=== PATIENT | male | born 1960 | race Caucasian/White ===

== ENCOUNTER 2017-09-28 05:41 | Inpatient (IN) | payer OTHER ==
[2017-09-24 14:59] LABS: BASOPHILS # (AUTO) 0.1 X10'3 (0-0.2); BASOPHILS % (AUTO) 1.1 % (0-1); EOSINOPHILS # (AUTO) 0.5 X10'3 (0-0.9); LYMPHOCYTES # (AUTO) 2.5 X10'3 (1.1-4.8); LYMPHOCYTES % (AUTO) 27.1 % (21-51); MEAN CORPUSCULAR HEMOGLOBIN 31.6 PG (27.0-31.0); MEAN CORPUSCULAR VOLUME 92.7 FL (78-98); MEAN PLATELET VOLUME 8.4 FL (7.4-10.4); MONOCYTES % (AUTO) 10.2 % (2-12); NEUTROPHILS # (AUTO) 5.3 X10'3 (1.8-7.7); NEUTROPHILS % (AUTO) 56.6 % (42-75); PRE OP HEMATOCRIT 44.8 % (42.0-52.0); PRE OP HEMOGLOBIN 15.3 g/dL (14.0-17.9); PRE OP PLATELET COUNT 241 X10'3 (140-440); RED BLOOD COUNT 4.83 X10'6 (4.70-6.10); RED CELL DISTRIBUTION WIDTH 13.2 % (11.5-14.5)
[2017-09-24 15:01] LABS: CLARITY,URINE Clear (Clear); COLOR,URINE Yellow (Yellow); GLUCOSE, URINE 100 mg/dl (Neg); KETONES,URINE Negative (Neg); LEUKOCYTE ESTERASE ,URINE Negative (Neg); NITRITES, URINE Negative (Neg); OCCULT BLOOD,URINE Negative (Neg); PROTEIN,URINE Negative (Neg); UROBILINOGEN,URINE 0.2 E.U/dL (0.2-1.0)
[2017-09-24 15:02] LABS: UA COLLECTION TYPE CLN CATCH MIDSTREAM
[2017-09-24 15:09] LABS: PRE OP PROTIME 10.8 SECONDS (9.0-12.0)
[2017-09-24 15:16] LABS: ALBUMIN 3.7 G/DL (3.4-5.0); ALBUMIN/GLOBULIN RATIO 1.1 (1.1-1.5); ALKALINE PHOSPHATASE 53 IU/L (46-116); BLOOD UREA NITROGEN 20 MG/DL (7-18); BUN/CREATININE RATIO 18.7 (5.4-32.0); CHLORIDE 106 MMOL/L (99-107); CREATININE 1.07 MG/DL (0.60-1.10); HEMOGLOBIN A1C 5.8 % (4.5-6.2); PRE OP ALT 28 U/L (30-65); PRE OP ANION GAP 8 (8-16); PRE OP AST 19 U/L (10-37); PRE OP BILIRUB, TOTAL 0.3 MG/DL (0.0-1.0); PRE OP GLUCOSE 71 MG/DL (70-104); PRE OP POTASSIUM 4.4 MMOL/L (3.4-5.1); PRE OP SODIUM 142 MMOL/L (135-145); TOTAL CARBON DIOXIDE 27.6 MMOL/L (24-32); TOTAL PROTEIN 7.2 G/DL (6.4-8.2); eGFR 71 ML/MIN
[2017-09-25 05:50] LABS: ABG PCO2 (T) 32.5 mmHg (35.0-48.0); ABG PH (T) 7.449 (7.350-7.450); ABG PO2 (T) 83.6 mmHg (83-108); ALLEN'S TEST Positive; FMetHb 0.1 % (0.3-1.12); TOTAL HEMOGLOBIN 15.9 G/dl (14.0-18.0)
[~2017-09-28] VITALS: Ht 177.8 cm; Wt 92.4 kg
[2017-09-28] VITALS (19 sets, daily range): BP systolic 90–142; BP diastolic 53–87
[~2017-09-28 05:41] MED LIST: ALBU6.7H INH; FLUO15OI2 TP; LORazepam 2 mg/ml vial IV PRN; TIOT18CA3 INH; albuterol 2.5 MG/3 ML nebule NEB ONE; cefazolin/dext.iso 2gm/50ml 50 ML IV ONE; famotidine 20mg tablet PO ONE; metoprolol tartrate 12.5mg (1/2 tablet) PO ONE; ringers solution, lacted 1,000 ML IV SCH; vancomycin inj 1,500 MG in normal saline 300ml IV soln IV ONE
[2017-09-28] MEDS ORDERED: LIDOcaine 1% (10mg/ml) 2ml vial ONE (05:53)
[2017-09-28] MEDS ORDERED: SUFENTANIL CITRATE 50 MCG/ML 2ml ampule IV ONE (06:51)
[2017-09-28] MEDS ORDERED: MIDAZolam 5mg/ml 2ml vial ONE ×2 (06:52→12:25)
[2017-09-28] MEDS ORDERED: LIDOcaine 2% 5ml jelly ONE (06:57)
[2017-09-28] MEDS ORDERED: isoflurane 100ml inhalation liquid IH ONE (07:05)
[2017-09-28] MEDS ORDERED: DOPamine/D5W 400mg/250ml bag IV ONE (07:05)
[2017-09-28] MEDS ORDERED: nitroGLYCERIN in D5W 50mg/250ml (Tridil) infusion IV ONE (07:05)
[2017-09-28] MEDS ORDERED: NORepinephrine 1 mg/ml inj IV ONE (07:05)
[2017-09-28] MEDS ORDERED: etomidate 2mg/ml inj. ONE (07:59)
[2017-09-28] MEDS ORDERED: ePHEDrine 50MG/ML INJ. ONE (07:59)
[2017-09-28] MEDS ORDERED: LIDOcaine 2% (20mg/ml) 5ml vial ONE (07:59)
[2017-09-28] MEDS ORDERED: rocuronium 10mg/ml inj IV ONE ×3 (07:59)
[2017-09-28] MEDS ORDERED: heparin 1,000 units/ml 10ml inj ONE (08:00)
[2017-09-28] MEDS ORDERED: potassium Cl 2 mEq/ml inj IV ONE (08:00)
[2017-09-28] MEDS ORDERED: heparin 10,000 units/1 ML INJ ONE (08:00)
[2017-09-28] MEDS ORDERED: methylPREDNISolone sod. succ. 500mg inj ONE (08:00)
[2017-09-28] MEDS ORDERED: aminocaproic acid 250 MG/1 ML inj. ONE (08:00)
[2017-09-28] MEDS ORDERED: 0.9 % SODIUM CHLORIDE 10 ML VIAL ONE ×4 (08:00)
[2017-09-28] MEDS ORDERED: phenylephrine 10mg/ml inj IV ONE ×2 (08:00)
[2017-09-28] MEDS ORDERED: MAGNESIUM SULFATE 4 MEQ/ML (1gm/2ml) injection ONE (08:00)
[2017-09-28] MEDS ORDERED: albumin (human) 25% 100 ML IV solution IV ONE (08:00)
[2017-09-28] MEDS ORDERED: LIDOcaine 2% (20 mg/ml) 5ml cardiac syringe ONE (08:00)
[2017-09-28] MEDS ORDERED: calcium chloride 100 MG/1 ML inj IV ONE (08:00)
[2017-09-28] MEDS ORDERED: sodium bicarbonate (8.4%) 1 mEq/ml syringe ONE (08:00)
[2017-09-28] MEDS ORDERED: mupirocin 2% ointment 22GM NS SCH (08:00)
[2017-09-28 08:05] LABS: ABG BASE EXCESS -1.4 mmol/L (-2.0-3.0); ABG HCO3 25.8 mmol/L (22.0-26.0); ABG OXYGEN SATURATION 99.5 % (95-98); ABG PCO2 54.1 mmHg (35.0-45.0); ABG PH 7.297 (7.350-7.450); ABG PO2 536.3 mmHg (60.0-100.0); CL (ABG) 106 mmol/L (99-107); FCOHb 1.4 % (0.5-1.5); FMetHb 0.3 % (0.3-1.12); FO2Hb 97.8 % (94-100); GLUCOSE (ABG) 124 mg/dl (70-105); IONIZED CA (ABG) 1.13 mmol/L (1.03-1.32); K (ABG) 4.2 mmol/L (3.3-5.1); NA (ABG) 135 mmol/L (135-145); TOTAL HEMOGLOBIN 13.9 G/dl (14.0-18.0)
[2017-09-28] MEDS ORDERED: fentaNYL/PF 50MCG/1 ML 2ML syringe IV PRN (08:55)
[2017-09-28] MEDS ORDERED: midazolam 2 mg/2 ml injection IV PRN (08:55)
[2017-09-28 09:06] LABS: ABG BASE EXCESS -0.7 mmol/L (-2.0-3.0); ABG HCO3 24.8 mmol/L (22.0-26.0); ABG OXYGEN SATURATION 99.1 % (95-98); ABG PCO2 44.2 mmHg (35.0-45.0); ABG PH 7.367 (7.350-7.450); CL (ABG) 105 mmol/L (99-107); FCOHb 0.9 % (0.5-1.5); FMetHb 0.1 % (0.3-1.12); FO2Hb 98.1 % (94-100); GLUCOSE (ABG) 123 mg/dl (70-105); IONIZED CA (ABG) 1.05 mmol/L (1.03-1.32); K (ABG) 5.5 mmol/L (3.3-5.1); NA (ABG) 133 mmol/L (135-145); TOTAL HEMOGLOBIN 11.3 G/dl (14.0-18.0)
[2017-09-28 09:20] LABS: ABG BASE EXCESS VENOUS -1.4 mmol/L; ABG HCO3 VENOUS 24.2 mmol/L; ABG PCO2 VENOUS 44.6 mmHg; ABG PO2 VENOUS 49.8 mmHg; CL (ABG) 105 mmol/L (99-107); FCOHb VENOUS 1.4 %; FHHb VENOUS 12.8 %; FMetHb VENOUS 0.1 %; FO2Hb VENOUS 85.7 %; GLUCOSE (ABG) 130 mg/dl (70-105); IONIZED CA (ABG) 1.07 mmol/L (1.03-1.32); K (ABG) 5.7 mmol/L (3.3-5.1); NA (ABG) 133 mmol/L (135-145); TOTAL HEMOGLOBIN 11.4 G/dl (14.0-18.0)
[2017-09-28 09:50] LABS: ACT @ 1.70 U 316 SEC (193-297); ACT @ 2.84 U 418 SEC (260-420); BASELINE ACT 149 SEC (101-148); PATIENT WEIGHT 93.0k KG
[2017-09-28 09:56] LABS: ABG BASE EXCESS 2.7 mmol/L (-2.0-3.0); ABG HCO3 26.5 mmol/L (22.0-26.0); ABG OXYGEN SATURATION 98.8 % (95-98); ABG PCO2 38.1 mmHg (35.0-45.0); ABG PH 7.461 (7.350-7.450); ABG PO2 174.2 mmHg (60.0-100.0); CL (ABG) 105 mmol/L (99-107); FMetHb 0.3 % (0.3-1.12); FO2Hb 97.5 % (94-100); GLUCOSE (ABG) 163 mg/dl (70-105); IONIZED CA (ABG) 1.03 mmol/L (1.03-1.32); K (ABG) 6.5 mmol/L (3.3-5.1); NA (ABG) 134 mmol/L (135-145); TOTAL HEMOGLOBIN 11.1 G/dl (14.0-18.0)
[2017-09-28 10:10] LABS: ABG BASE EXCESS -1.1 mmol/L (-2.0-3.0); ABG HCO3 22.7 mmol/L (22.0-26.0); ABG OXYGEN SATURATION 98.9 % (95-98); ABG PCO2 34.4 mmHg (35.0-45.0); ABG PH 7.437 (7.350-7.450); ABG PO2 330.4 mmHg (60.0-100.0); CL (ABG) 102 mmol/L (99-107); FCOHb 0.5 % (0.5-1.5); FMetHb 0.2 % (0.3-1.12); FO2Hb 98.2 % (94-100); GLUCOSE (ABG) 163 mg/dl (70-105); IONIZED CA (ABG) 1.52 mmol/L (1.03-1.32); K (ABG) 6.4 mmol/L (3.3-5.1); NA (ABG) 126 mmol/L (135-145); TOTAL HEMOGLOBIN 10.4 G/dl (14.0-18.0)
[2017-09-28 10:36] LABS: ABG BASE EXCESS -0.8 mmol/L (-2.0-3.0); ABG HCO3 24.7 mmol/L (22.0-26.0); ABG OXYGEN SATURATION 99.3 % (95-98); ABG PCO2 44.1 mmHg (35.0-45.0); ABG PH 7.366 (7.350-7.450); ABG PO2 504.2 mmHg (60.0-100.0); CL (ABG) 106 mmol/L (99-107); FCOHb 0.7 % (0.5-1.5); FMetHb 0.3 % (0.3-1.12); FO2Hb 98.3 % (94-100); GLUCOSE (ABG) 144 mg/dl (70-105); IONIZED CA (ABG) 1.22 mmol/L (1.03-1.32); K (ABG) 5.6 mmol/L (3.3-5.1); NA (ABG) 132 mmol/L (135-145); TOTAL HEMOGLOBIN 11.2 G/dl (14.0-18.0)
[2017-09-28] MEDS ORDERED: ceFAZolin 1000mg inj ONE (10:43)
[2017-09-28] MEDS: insulin regular, human 100 UNITS in normal saline 100ml IV soln 99 ML IV SCH ×14 (10:50→21:05)
[2017-09-28] MEDS ORDERED: sodium chloride 0.45% 1,000 ML IV SCH (11:24)
[2017-09-28] MEDS ORDERED: DOPamine 400mg/D5W 250ml 250 ML IV PRN (11:24)
[2017-09-28] MEDS ORDERED: niCARDipine/sod cl 20mg/200ml 200 ML IV PRN (11:24)
[2017-09-28] MEDS ORDERED: nitroGLYCERIN-Tridil 50MG/D5W 250 ML IV PRN (11:24)
[2017-09-28] MEDS ORDERED: potassium Cl 20mEq/100mL bag 100 ML IV PRN ×3 (11:25)
[2017-09-28] MEDS ORDERED: HYDROcodone/acetaminophen 10/325mg tab PO PRN (11:25)
[2017-09-28] MEDS ORDERED: metoclopramide 5 mg/ml inj IV PRN (11:25)
[2017-09-28] MEDS ORDERED: acetaminophen 325mg tablet PO PRN (11:25)
[2017-09-28] MEDS ORDERED: sodium phosphate inj. 15 MMOL in dextrose 5%-water 150 ML IV PRN (11:25)
[2017-09-28] MEDS ORDERED: insulin regular, human inj. 100 UNITS in normal saline 100ml IV soln 100 ML IV SCH ×2 (11:25)
[2017-09-28] MEDS ORDERED: ondansetron/PF 4mg/2ml inj IV PRN (11:25)
[2017-09-28] MEDS ORDERED: magnesium 4gm in 100ml NS 100 ML IV PRN (11:25)
[2017-09-28] MEDS ORDERED: Neutra Phos packet PO PRN (11:25)
[2017-09-28] MEDS ORDERED: sodium phosphate inj. 30 MMOL in dextrose 5%-water 250 ML IV PRN (11:25)
[2017-09-28] MEDS ORDERED: normal saline 250ml IV soln 250 ML IV PRN (11:25)
[2017-09-28] MEDS ORDERED: dextrose 50%-water 50ml dispensing syringe IV PRN (11:25)
[2017-09-28] MEDS ORDERED: magnesium hydroxide 30ml (MOM) UD suspension PO PRN (11:25)
[2017-09-28] MEDS ORDERED: magnesium 2GM in 50ml NS 50 ML IV PRN (11:25)
[2017-09-28] MEDS ORDERED: morphine 4 MG/ML inj SYRINge IV PRN (11:25)
[2017-09-28 11:40] LABS: ABG BASE EXCESS -1.9 mmol/L (-2.0-3.0); ABG HCO3 24.1 mmol/L (22.0-26.0); ABG OXYGEN SATURATION 99.4 % (95-98); ABG PCO2 (T) 45.2 mmHg (35.0-48.0); ABG PH (T) 7.343 (7.350-7.450); ABG PO2 (T) 380.4 mmHg (83-108); FCOHb 1.1 % (0.5-1.5); FMetHb 0.5 % (0.3-1.12); FO2Hb 97.8 % (94-100); MINUTE VOLUME 11 L/min; PATIENT TEMPERATURE 36.7; PEEP 5 cm H2O; RESPIRATORY RATE 12 b/min; RESPIRATORY RATE (OBSERVED) 12 b/min; TIDAL VOLUME 600 mL; TOTAL HEMOGLOBIN 14.3 G/dl (14.0-18.0)
[2017-09-28] MEDS ORDERED: albuterol 2.5 MG/3 ML nebule NEB PRN (11:40)
[2017-09-28 11:55] LABS: BASOPHILS % (AUTO) 0.1 % (0-1); EOSINOPHILS # (AUTO) 0.4 X10'3 (0-0.9); EOSINOPHILS % (AUTO) 1.9 % (0-6); HEMATOCRIT 39.1 % (42.0-52.0); HEMOGLOBIN 13.5 g/dl (14.0-17.9); LYMPHOCYTES # (AUTO) 1.3 X10'3 (1.1-4.8); MEAN CORPUSCULAR HEMOGLOBIN 31.7 PG (27.0-31.0); MEAN CORPUSCULAR HGB CONC 34.5 % (33.0-36.5); MEAN CORPUSCULAR VOLUME 91.7 FL (78-98); MEAN PLATELET VOLUME 7.9 FL (7.4-10.4); MONOCYTES # (AUTO) 0.7 X10'3 (0-0.9); MONOCYTES % (AUTO) 3.3 % (2-12); NEUTROPHILS # (AUTO) 19.6 X10'3 (1.8-7.7); NEUTROPHILS % (AUTO) 88.7 % (42-75); PLATELET COUNT 184 X10'3 (140-440); RED BLOOD COUNT 4.26 X10'6 (4.70-6.10); RED CELL DISTRIBUTION WIDTH 13.4 % (11.5-14.5); WHITE BLOOD COUNT 22.1 X10'3 (4.5-11.0)
[2017-09-28 12:08] LABS: ALANINE AMINOTRANSFERASE 26 U/L (12-78); ALBUMIN 2.9 G/DL (3.4-5.0); ALBUMIN/GLOBULIN RATIO 1.3 (1.1-1.5); ALKALINE PHOSPHATASE 35 IU/L (46-116); ANION GAP 6 (8-16); ASPARTATE AMINO TRANSFERASE 34 U/L (10-37); BILIRUBIN,TOTAL 0.5 MG/DL (0.1-1.0); BLOOD UREA NITROGEN 20 MG/DL (7-18); BUN/CREATININE RATIO 16.4 (5.4-32.0); CALCIUM 8.4 MG/DL (8.5-10.1); CHLORIDE 110 MMOL/L (99-107); CREATININE 1.22 MG/DL (0.60-1.10); GLUCOSE 104 MG/DL (70-104); MAGNESIUM 3.9 MG/DL (1.5-2.4); PHOSPHORUS 1.9 MG/DL (2.3-4.5); POTASSIUM 4.4 MMOL/L (3.5-5.1); SODIUM 143 MMOL/L (135-145); TOTAL CARBON DIOXIDE 26.8 MMOL/L (24-32); TOTAL PROTEIN 5.2 G/DL (6.4-8.2); eGFR 61 ML/MIN
[2017-09-28 12:13] LABS: INR 1.2 INR; PARTIAL THROMBOPLASTIN TIME 30 SECONDS (22-32); PROTHROMBIN TIME 12.2 SECONDS (9.0-12.0)
[2017-09-28 12:15] LABS: TOTAL CELLS COUNTED 100
[2017-09-28 12:19] LABS: PLATELET ESTIMATE NORMAL
[2017-09-28] MEDS ORDERED: MIDAZolam 5mg/ml 2ml vial IV PRN (12:30)
[2017-09-28 12:31] LABS: ACTIVATED CLOTTING TIME 135 SEC (101-148)
[2017-09-28] MEDS: morphine 4 MG/ML inj SYRINge IV PRN ×2 (12:34→14:41)
[2017-09-28] MEDS: insulin Lispro (HumaLOG) vial - multi-dose SQ SCH ×2 (13:00→17:39)
[2017-09-28] MEDS: albumin (Human) 5% 250ml 250 ML IV PRN ×2 (13:21→14:35)
[2017-09-28] MEDS: ipratropium 0.5 MG/2.5ML nebule IH SCH ×2 (15:00→20:54)
[2017-09-28] MEDS: cefazolin 1gm/NS 100mL 100 ML IV SCH (16:13)
[2017-09-28 17:20] LABS: ABG BASE EXCESS -5.4 mmol/L (-2.0-3.0); ABG HCO3 19.8 mmol/L (22.0-26.0); ABG OXYGEN SATURATION 95.5 % (95-98); ABG PH (T) 7.344 (7.350-7.450); ABG PO2 (T) 81.2 mmHg (83-108); FCOHb 0.5 % (0.5-1.5); FMetHb 0.3 % (0.3-1.12); FO2Hb 94.7 % (94-100); MINUTE VOLUME 10 L/min; PATIENT TEMPERATURE 36.9; PEEP 5 cm H2O; RESPIRATORY RATE (OBSERVED) 17 b/min; TOTAL HEMOGLOBIN 12.9 G/dl (14.0-18.0)
[2017-09-28 17:39] LABS: BASOPHILS % (AUTO) 0 % (0-1); EOSINOPHILS # (AUTO) 0.2 X10'3 (0-0.9); EOSINOPHILS % (AUTO) 1.6 % (0-6); HEMATOCRIT 35.3 % (42.0-52.0); HEMOGLOBIN 12.1 g/dl (14.0-17.9); LYMPHOCYTES # (AUTO) 0.2 X10'3 (1.1-4.8); MEAN CORPUSCULAR HEMOGLOBIN 31.6 PG (27.0-31.0); MEAN CORPUSCULAR HGB CONC 34.3 % (33.0-36.5); MEAN CORPUSCULAR VOLUME 92.2 FL (78-98); MONOCYTES # (AUTO) 0.3 X10'3 (0-0.9); MONOCYTES % (AUTO) 2.7 % (2-12); NEUTROPHILS # (AUTO) 11.2 X10'3 (1.8-7.7); NEUTROPHILS % (AUTO) 93.7 % (42-75); PLATELET COUNT 137 X10'3 (140-440); RED BLOOD COUNT 3.83 X10'6 (4.70-6.10); RED CELL DISTRIBUTION WIDTH 13.1 % (11.5-14.5)
[2017-09-28 17:48] LABS: ALBUMIN 3.3 G/DL (3.4-5.0); ANION GAP 10 (8-16); BLOOD UREA NITROGEN 23 MG/DL (7-18); BUN/CREATININE RATIO 18.7 (5.4-32.0); CALCIUM 7.7 MG/DL (8.5-10.1); CHLORIDE 110 MMOL/L (99-107); CREATININE 1.23 MG/DL (0.60-1.10); GLUCOSE 187 MG/DL (70-104); POTASSIUM 4.9 MMOL/L (3.5-5.1); SODIUM 143 MMOL/L (135-145); TOTAL CARBON DIOXIDE 23.5 MMOL/L (24-32); eGFR 61 ML/MIN
[2017-09-28] MEDS: vancomycin/NS 1 GM ADD-VANTAGE 250 ML IV SCH (19:55)
[2017-09-28] MEDS: HYDROcodone/acetaminophen 10/325mg tab PO PRN (19:55)
[2017-09-28] MEDS: mupirocin 2% ointment 22GM NS SCH (19:57)
[2017-09-28] MEDS: FLUOCINOLONE ACETONIDE TOP SCH (19:59)
[2017-09-28] MEDS: docusate sod 100mg capsule PO SCH (19:59)
[2017-09-29] VITALS (24 sets, daily range): BP systolic 95–120; BP diastolic 48–73
[2017-09-29] MEDS: cefazolin 1gm/NS 100mL 100 ML IV SCH ×4 (00:26→23:31)
[2017-09-29] MEDS: HYDROcodone/acetaminophen 10/325mg tab PO PRN ×5 (02:05→20:29)
[2017-09-29] MEDS: insulin regular, human 100 UNITS in normal saline 100ml IV soln 99 ML IV SCH ×10 (02:07→06:07)
[2017-09-29] MEDS: ipratropium 0.5 MG/2.5ML nebule IH SCH ×4 (03:07→20:38)
[2017-09-29 03:31] LABS: BASOPHILS % (AUTO) 0.1 % (0-1); EOSINOPHILS % (AUTO) 0 % (0-6); HEMATOCRIT 34.1 % (42.0-52.0); HEMOGLOBIN 11.8 g/dl (14.0-17.9); LYMPHOCYTES # (AUTO) 0.7 X10'3 (1.1-4.8); LYMPHOCYTES % (AUTO) 3.6 % (21-51); MEAN CORPUSCULAR HEMOGLOBIN 31.8 PG (27.0-31.0); MEAN CORPUSCULAR HGB CONC 34.6 % (33.0-36.5); MEAN CORPUSCULAR VOLUME 91.9 FL (78-98); MEAN PLATELET VOLUME 8.6 FL (7.4-10.4); MONOCYTES # (AUTO) 1.2 X10'3 (0-0.9); MONOCYTES % (AUTO) 5.7 % (2-12); NEUTROPHILS # (AUTO) 18.3 X10'3 (1.8-7.7); NEUTROPHILS % (AUTO) 90.6 % (42-75); PLATELET COUNT 132 X10'3 (140-440); RED BLOOD COUNT 3.71 X10'6 (4.70-6.10); RED CELL DISTRIBUTION WIDTH 13.6 % (11.5-14.5); WHITE BLOOD COUNT 20.3 X10'3 (4.5-11.0)
[2017-09-29 03:43] LABS: INR 1.2 INR; PARTIAL THROMBOPLASTIN TIME 28 SECONDS (22-32); PROTHROMBIN TIME 12.3 SECONDS (9.0-12.0)
[2017-09-29 03:46] LABS: ALANINE AMINOTRANSFERASE 26 U/L (12-78); ALBUMIN 3.2 G/DL (3.4-5.0); ALBUMIN/GLOBULIN RATIO 1.3 (1.1-1.5); ALKALINE PHOSPHATASE 31 IU/L (46-116); ANION GAP 12 (8-16); ASPARTATE AMINO TRANSFERASE 40 U/L (10-37); BILIRUBIN,TOTAL 0.6 MG/DL (0.1-1.0); BLOOD UREA NITROGEN 26 MG/DL (7-18); BUN/CREATININE RATIO 19.7 (5.4-32.0); CALCIUM 7.7 MG/DL (8.5-10.1); CHLORIDE 110 MMOL/L (99-107); CREATININE 1.32 MG/DL (0.60-1.10); GLUCOSE 152 MG/DL (70-104); MAGNESIUM 2.4 MG/DL (1.5-2.4); PHOSPHORUS 4.1 MG/DL (2.3-4.5); POTASSIUM 4.4 MMOL/L (3.5-5.1); SODIUM 142 MMOL/L (135-145); TOTAL CARBON DIOXIDE 20.1 MMOL/L (24-32); TOTAL PROTEIN 5.7 G/DL (6.4-8.2); eGFR 56 ML/MIN
[2017-09-29] MEDS: pantoprazole 40mg Tablet.DR PO SCH (07:11)
[2017-09-29] MEDS: docusate sod 100mg capsule PO SCH ×2 (08:00→19:35)
[2017-09-29] MEDS: FLUOCINOLONE ACETONIDE TOP SCH ×2 (08:00→19:36)
[2017-09-29] MEDS: aspirin 325mg tablet, delayed-release (Ecotrin) PO SCH (08:14)
[2017-09-29] MEDS: atorvastatin 10mg tablet PO SCH (08:14)
[2017-09-29] MEDS: vancomycin/NS 1 GM ADD-VANTAGE 250 ML IV SCH ×2 (08:15→19:36)
[2017-09-29] MEDS: mupirocin 2% ointment 22GM NS SCH ×2 (08:15→19:34)
[2017-09-29] MEDS: insulin Lispro (HumaLOG) vial - multi-dose SQ SCH ×4 (08:50→19:38)
[2017-09-29] MEDS: metoprolol tartrate 12.5mg (1/2 tablet) PO SCH ×2 (10:44→19:35)
[2017-09-29] MEDS ORDERED: mineral oil/petrolatum ophthal oint EACHEYE SCH (14:00)
[2017-09-29] MEDS ORDERED: glucagon, human recombinant 1mg kit SUBCUT PRN (16:00)
[2017-09-29] MEDS ORDERED: dextrose ORAL solution 15 GM/59 ML bottle PO PRN ×2 (16:00)
[2017-09-29] MEDS ORDERED: dextrose 50%-water 50ml dispensing syringe IV PRN ×2 (16:00)
[2017-09-29] MEDS ORDERED: insulin glargine (Lantus) pen - multi-dose SQ SCH (21:00)
[2017-09-30] VITALS (18 sets, daily range): BP systolic 106–139; BP diastolic 59–76
[2017-09-30] MEDS: ipratropium 0.5 MG/2.5ML nebule IH SCH ×4 (03:00→20:30)
[2017-09-30 03:33] LABS: BASOPHILS % (AUTO) 0 % (0-1); EOSINOPHILS # (AUTO) 0.1 X10'3 (0-0.9); EOSINOPHILS % (AUTO) 0.7 % (0-6); HEMATOCRIT 33.1 % (42.0-52.0); HEMOGLOBIN 11.3 g/dl (14.0-17.9); LYMPHOCYTES # (AUTO) 1.5 X10'3 (1.1-4.8); LYMPHOCYTES % (AUTO) 7.8 % (21-51); MEAN CORPUSCULAR HEMOGLOBIN 31.8 PG (27.0-31.0); MEAN CORPUSCULAR HGB CONC 34.1 % (33.0-36.5); MEAN CORPUSCULAR VOLUME 93.4 FL (78-98); MEAN PLATELET VOLUME 9.1 FL (7.4-10.4); MONOCYTES # (AUTO) 1.7 X10'3 (0-0.9); MONOCYTES % (AUTO) 9.1 % (2-12); NEUTROPHILS # (AUTO) 15.6 X10'3 (1.8-7.7); NEUTROPHILS % (AUTO) 82.4 % (42-75); PLATELET COUNT 121 X10'3 (140-440); RED BLOOD COUNT 3.54 X10'6 (4.70-6.10); RED CELL DISTRIBUTION WIDTH 13.9 % (11.5-14.5); WHITE BLOOD COUNT 18.9 X10'3 (4.5-11.0)
[2017-09-30 03:49] LABS: ANION GAP 6 (8-16); BLOOD UREA NITROGEN 30 MG/DL (7-18); BUN/CREATININE RATIO 30.6 (5.4-32.0); CALCIUM 7.6 MG/DL (8.5-10.1); CHLORIDE 108 MMOL/L (99-107); CREATININE 0.98 MG/DL (0.60-1.10); GLUCOSE 99 MG/DL (70-104); MAGNESIUM 2.7 MG/DL (1.5-2.4); PHOSPHORUS 2.7 MG/DL (2.3-4.5); POTASSIUM 5.2 MMOL/L (3.5-5.1); SODIUM 140 MMOL/L (135-145); TOTAL CARBON DIOXIDE 25.7 MMOL/L (24-32); eGFR 79 ML/MIN
[2017-09-30] MEDS: HYDROcodone/acetaminophen 10/325mg tab PO PRN ×5 (07:22→21:49)
[2017-09-30] MEDS: FLUOCINOLONE ACETONIDE TOP SCH ×2 (08:00→20:00)
[2017-09-30] MEDS: mupirocin 2% ointment 22GM NS SCH (08:07)
[2017-09-30] MEDS: aspirin 325mg tablet, delayed-release (Ecotrin) PO SCH (08:07)
[2017-09-30] MEDS: pantoprazole 40mg Tablet.DR PO SCH (08:07)
[2017-09-30] MEDS: atorvastatin 10mg tablet PO SCH (08:07)
[2017-09-30] MEDS: metoprolol tartrate 12.5mg (1/2 tablet) PO SCH ×2 (08:07→20:32)
[2017-09-30] MEDS: docusate sod 100mg capsule PO SCH ×2 (08:07→20:32)
[2017-09-30] MEDS ORDERED: magnesium 4gm in 100ml NS 100 ML IV PRN (09:20)
[2017-09-30] MEDS ORDERED: potassium Cl 20 mEq SR tablet PO PRN ×2 (09:20)
[2017-09-30] MEDS ORDERED: potassium Cl 40MEQ/NS 500ml 500 ML IV PRN ×2 (09:20)
[2017-09-30] MEDS ORDERED: magnesium Cl slow-release 64mg tablet PO PRN (09:20)
[2017-09-30] MEDS ORDERED: magnesium 2GM in 50ml NS 50 ML IV PRN (09:20)
[2017-09-30] MEDS: potassium Cl 20 mEq SR tablet PO SCH (20:00)
[2017-09-30] MEDS: magnesium Cl slow-release 64mg tablet PO SCH (20:00)
[2017-10-01 03:22] VITALS: BP 114/69
[2017-10-01] MEDS: ipratropium 0.5 MG/2.5ML nebule IH SCH ×4 (03:41→20:57)
[2017-10-01] MEDS: HYDROcodone/acetaminophen 10/325mg tab PO PRN ×4 (04:43→20:51)
[2017-10-01 05:42] LABS: BASOPHILS % (AUTO) 0.1 % (0-1); EOSINOPHILS % (AUTO) 0.2 % (0-6); HEMATOCRIT 34.8 % (42.0-52.0); HEMOGLOBIN 11.8 g/dl (14.0-17.9); LYMPHOCYTES # (AUTO) 2.2 X10'3 (1.1-4.8); LYMPHOCYTES % (AUTO) 14.9 % (21-51); MEAN CORPUSCULAR HEMOGLOBIN 31.6 PG (27.0-31.0); MEAN CORPUSCULAR VOLUME 92.9 FL (78-98); MEAN PLATELET VOLUME 8.9 FL (7.4-10.4); MONOCYTES # (AUTO) 1.7 X10'3 (0-0.9); MONOCYTES % (AUTO) 11.5 % (2-12); NEUTROPHILS # (AUTO) 10.7 X10'3 (1.8-7.7); NEUTROPHILS % (AUTO) 73.3 % (42-75); PLATELET COUNT 151 X10'3 (140-440); RED BLOOD COUNT 3.74 X10'6 (4.70-6.10); RED CELL DISTRIBUTION WIDTH 13.7 % (11.5-14.5); WHITE BLOOD COUNT 14.5 X10'3 (4.5-11.0)
[2017-10-01 05:57] LABS: ALBUMIN 3.1 G/DL (3.4-5.0); ANION GAP 7 (8-16); BLOOD UREA NITROGEN 26 MG/DL (7-18); BUN/CREATININE RATIO 27.7 (5.4-32.0); CHLORIDE 104 MMOL/L (99-107); CREATININE 0.94 MG/DL (0.60-1.10); GLUCOSE 103 MG/DL (70-104); MAGNESIUM 2.3 MG/DL (1.5-2.4); POTASSIUM 4.4 MMOL/L (3.5-5.1); SODIUM 141 MMOL/L (135-145); TOTAL CARBON DIOXIDE 29.9 MMOL/L (24-32); eGFR 83 ML/MIN
[2017-10-01 07:00] VITALS: BP 111/66
[2017-10-01] MEDS: K and/or MAG REPLACEMENT MC SCH (08:00)
[2017-10-01] MEDS: FLUOCINOLONE ACETONIDE TOP SCH ×2 (08:00→20:00)
[2017-10-01] MEDS: metoprolol tartrate 12.5mg (1/2 tablet) PO SCH ×2 (08:08→20:51)
[2017-10-01] MEDS: magnesium Cl slow-release 64mg tablet PO SCH ×2 (08:08→20:00)
[2017-10-01] MEDS: aspirin 325mg tablet, delayed-release (Ecotrin) PO SCH (08:08)
[2017-10-01] MEDS: atorvastatin 10mg tablet PO SCH (08:09)
[2017-10-01] MEDS: pantoprazole 40mg Tablet.DR PO SCH (08:09)
[2017-10-01] MEDS: docusate sod 100mg capsule PO SCH ×2 (08:09→20:49)
[2017-10-01] MEDS: potassium Cl 20 mEq SR tablet PO SCH ×2 (08:09→20:00)
[2017-10-01 11:00] VITALS: BP 112/70
[2017-10-01 15:00] VITALS: BP 122/72
[2017-10-01 19:00] VITALS: BP 135/66
[2017-10-01 23:00] VITALS: BP 106/66
[2017-10-02] MEDS: HYDROcodone/acetaminophen 10/325mg tab PO PRN ×2 (01:42→08:03)
[2017-10-02 03:00] VITALS: BP 124/70
[2017-10-02] MEDS: ipratropium 0.5 MG/2.5ML nebule IH SCH ×2 (03:35→08:26)
[2017-10-02 06:00] VITALS: BP 127/75
[2017-10-02 07:11] LABS: ALBUMIN 2.8 G/DL (3.4-5.0); ANION GAP 5 (8-16); BLOOD UREA NITROGEN 21 MG/DL (7-18); BUN/CREATININE RATIO 24.1 (5.4-32.0); CALCIUM 7.9 MG/DL (8.5-10.1); CHLORIDE 104 MMOL/L (99-107); CREATININE 0.87 MG/DL (0.60-1.10); GLUCOSE 101 MG/DL (70-104); SODIUM 137 MMOL/L (135-145); TOTAL CARBON DIOXIDE 27.9 MMOL/L (24-32); eGFR 90 ML/MIN
[2017-10-02 07:18] LABS: BASOPHILS % (AUTO) 0.3 % (0-1); EOSINOPHILS # (AUTO) 0.2 X10'3 (0-0.9); EOSINOPHILS % (AUTO) 2.5 % (0-6); HEMATOCRIT 31.9 % (42.0-52.0); HEMOGLOBIN 11.1 g/dl (14.0-17.9); LYMPHOCYTES # (AUTO) 1.9 X10'3 (1.1-4.8); LYMPHOCYTES % (AUTO) 19.1 % (21-51); MEAN CORPUSCULAR HEMOGLOBIN 31.9 PG (27.0-31.0); MEAN CORPUSCULAR HGB CONC 34.8 % (33.0-36.5); MEAN CORPUSCULAR VOLUME 91.7 FL (78-98); MEAN PLATELET VOLUME 8.5 FL (7.4-10.4); MONOCYTES % (AUTO) 10.4 % (2-12); NEUTROPHILS # (AUTO) 6.7 X10'3 (1.8-7.7); NEUTROPHILS % (AUTO) 67.7 % (42-75); PLATELET COUNT 172 X10'3 (140-440); RED BLOOD COUNT 3.48 X10'6 (4.70-6.10); WHITE BLOOD COUNT 9.9 X10'3 (4.5-11.0)
[2017-10-02] MEDS: FLUOCINOLONE ACETONIDE TOP SCH (08:00)
[2017-10-02] MEDS: magnesium Cl slow-release 64mg tablet PO SCH (08:00)
[2017-10-02] MEDS: atorvastatin 10mg tablet PO SCH (08:03)
[2017-10-02] MEDS: aspirin 325mg tablet, delayed-release (Ecotrin) PO SCH (08:03)
[2017-10-02] MEDS: metoprolol tartrate 12.5mg (1/2 tablet) PO SCH (08:03)
[2017-10-02] MEDS: pantoprazole 40mg Tablet.DR PO SCH (08:04)
[2017-10-02] MEDS: potassium Cl 20 mEq SR tablet PO SCH (08:04)
[2017-10-02] MEDS: docusate sod 100mg capsule PO SCH (08:04)
[2017-10-02] MEDS: K and/or MAG REPLACEMENT MC SCH (08:06)
[2017-10-02] MEDS ORDERED: ATOR10TA PO (09:24)
[2017-10-02] MEDS ORDERED: HYDR-3972 PO (09:24)
[2017-10-02] MEDS ORDERED: ASPI-41 PO (09:24)
[2017-10-02] MEDS ORDERED: METO25TA6 PO (09:24)
[2017-10-02] MEDS ORDERED: COL100C PO (09:24)
[2017-10-02 11:00] VITALS: BP 140/81
== END 2017-10-02 12:15 | disposition home or self-care (01) | DRG 219 ==
LOC: PAS IN 05:41 → EDSTATUS 07:30 → CICU 2S 11:20 → PCU 3S 09-30 14:30
PROVIDERS: ADMIT Thoracic Surgery (Cardiothoracic Vascular Surgery); ATTEND Thoracic Surgery (Cardiothoracic Vascular Surgery)
PROC: B246ZZ4 Ultrasonography of Right and Left Heart, Transesophageal (ICD-10-PCS; 2017-09-28)
PROC: 5A1221Z Performance of Cardiac Output, Continuous (ICD-10-PCS; 2017-09-28)
PROC: 03HY32Z Insertion of Monitoring Device into Upper Artery, Percutaneous Approach (ICD-10-PCS; 2017-09-28)
PROC: 02HV33Z Insertion of Infusion Device into Superior Vena Cava, Percutaneous Approach (ICD-10-PCS; 2017-09-28)
PROC: B548ZZA Ultrasonography of Superior Vena Cava, Guidance (ICD-10-PCS; 2017-09-28)
PROC: 02RF08Z Replacement of Aortic Valve with Zooplastic Tissue, Open Approach (ICD-10-PCS; principal; 2017-09-28 07:05)
DX: I35.0 Nonrheumatic aortic (valve) stenosis (principal); I50.31 Acute diastolic (congestive) heart failure; J44.9 Chronic obstructive pulmonary disease, unspecified; F17.210 Nicotine dependence, cigarettes, uncomplicated; Z80.9 Family history of malignant neoplasm, unspecified; Z82.3 Family history of stroke
CPT/HCPCS: 0232T; 93312; 93325; 36415; 36600; 71045; 71046; 80048; 80053; 81003; 82330; 82435; 82803; 82947; 82948; 83036; 83735; 84100; 84132; 84295; 85018; 85025; 85347; 85384; 85610; 85730; 86885; 86900; 86901; 86920; 87070; 93005; 93971; 94002; 94010; 94640; 94760; 97110; 97116; 97161; A6213; A6251; A6255; A6257; A6258; A6402; A6449; A7000; A7048; C1713; C1751; J0690; J1265; J1644; J1815; J2001; J2060; J2150; J2250; J2270; J2370; J2405; J2930; J3370; J3475; J3480; J3490; J7030; J7060; J7120; P9045; P9047

== ENCOUNTER 2017-11-12 10:25 | Inpatient (IN) | payer OTHER ==
[~2017-11-12] VITALS: Ht 177.8 cm; Wt 88.2 kg
[~2017-11-12 10:25] MED LIST changes: +ASPI-41 PO; +ATOR10TA PO; +COL100C PO; +HYDR-3972 PO; -LORazepam 2 mg/ml vial IV PRN; +METO25TA6 PO; -albuterol 2.5 MG/3 ML nebule NEB ONE; -cefazolin/dext.iso 2gm/50ml 50 ML IV ONE; -famotidine 20mg tablet PO ONE; -metoprolol tartrate 12.5mg (1/2 tablet) PO ONE; -ringers solution, lacted 1,000 ML IV SCH; -vancomycin inj 1,500 MG in normal saline 300ml IV soln IV ONE
[2017-11-12] MEDS ORDERED: ondansetron/PF 4mg/2ml inj IV ONE (10:30)
[2017-11-12] MEDS ORDERED: morphine 4 MG/ML inj SYRINge IV ONE (10:30)
[2017-11-12] MEDS ORDERED: iohexol 350MG/ML 100ml bottle IV ONE (10:35)
[2017-11-12 10:46] LABS: BASOPHILS % (AUTO) 0.5 % (0-1); EOSINOPHILS # (AUTO) 0.7 X10'3 (0-0.9); EOSINOPHILS % (AUTO) 7.6 % (0-6); HEMATOCRIT 39.8 % (42.0-52.0); HEMOGLOBIN 13.7 g/dl (14.0-17.9); LYMPHOCYTES # (AUTO) 2.2 X10'3 (1.1-4.8); LYMPHOCYTES % (AUTO) 24.4 % (21-51); MEAN CORPUSCULAR HEMOGLOBIN 30.9 PG (27.0-31.0); MEAN CORPUSCULAR HGB CONC 34.5 % (33.0-36.5); MEAN CORPUSCULAR VOLUME 89.8 FL (78-98); MEAN PLATELET VOLUME 7.7 FL (7.4-10.4); MONOCYTES # (AUTO) 0.8 X10'3 (0-0.9); MONOCYTES % (AUTO) 8.7 % (2-12); NEUTROPHILS # (AUTO) 5.2 X10'3 (1.8-7.7); NEUTROPHILS % (AUTO) 58.8 % (42-75); PLATELET COUNT 299 X10'3 (140-440); RED BLOOD COUNT 4.43 X10'6 (4.70-6.10); WHITE BLOOD COUNT 8.8 X10'3 (4.5-11.0)
[2017-11-12 11:08] LABS: ALANINE AMINOTRANSFERASE 24 U/L (12-78); ALBUMIN 3.5 G/DL (3.4-5.0); ALKALINE PHOSPHATASE 65 IU/L (46-116); ANION GAP 11 (8-16); ASPARTATE AMINO TRANSFERASE 17 U/L (10-37); BILIRUBIN,TOTAL 0.4 MG/DL (0.1-1.0); BLOOD UREA NITROGEN 15 MG/DL (7-18); BUN/CREATININE RATIO 14.9 (5.4-32.0); CALCIUM 9.1 MG/DL (8.5-10.1); CHLORIDE 104 MMOL/L (99-107); CREATININE 1.01 MG/DL (0.60-1.10); GLUCOSE 122 MG/DL (70-104); MAGNESIUM 1.9 MG/DL (1.5-2.4); POTASSIUM 3.8 MMOL/L (3.5-5.1); SODIUM 141 MMOL/L (135-145); TOTAL PROTEIN 7.1 G/DL (6.4-8.2); eGFR 76 ML/MIN
[2017-11-12] MEDS ORDERED: OMEP40CA37 PO (12:57)
[2017-11-12] MEDS ORDERED: TIOT18CA3 INH (12:57)
[2017-11-12] MEDS ORDERED: metoprolol tartrate 1mg/ml inj IV PRN (13:45)
[2017-11-12] MEDS ORDERED: magnesium Cl slow-release 64mg tablet PO PRN (13:45)
[2017-11-12] MEDS ORDERED: HYDROcodone/acetaminophen 5mg/325mg tablet PO PRN (13:45)
[2017-11-12] MEDS ORDERED: potassium Cl 20 mEq SR tablet PO PRN ×2 (13:45)
[2017-11-12] MEDS ORDERED: CAFFEINE CITRATE 60 MG/3 ML injection vial IV PRN (13:45)
[2017-11-12] MEDS ORDERED: morphine 4 MG/ML inj SYRINge IV PRN ×2 (13:45)
[2017-11-12] MEDS ORDERED: nitroGLYCERIN 0.4mg SUBLingual tab SL PRN (13:45)
[2017-11-12] MEDS ORDERED: magnesium 2GM in 50ml NS 50 ML IV PRN (13:45)
[2017-11-12] MEDS ORDERED: ondansetron/PF 4mg/2ml inj IV PRN (13:45)
[2017-11-12] MEDS ORDERED: regadenoson 0.4mg/5ml syringe IV ONE (13:45)
[2017-11-12] MEDS ORDERED: magnesium 4gm in 100ml NS 100 ML IV PRN (13:45)
[2017-11-12] MEDS ORDERED: mag hydrox/Alum hydrox/simeth 30ml oral suspension PO PRN (13:45)
[2017-11-12] MEDS ORDERED: magnesium hydroxide 30ml (MOM) UD suspension PO PRN (13:45)
[2017-11-12] MEDS ORDERED: acetaminophen 325mg tablet PO PRN ×2 (13:45)
[2017-11-12] MEDS ORDERED: HYDROcodone/acetaminophen 10/325mg tab PO PRN (13:45)
[2017-11-12] MEDS ORDERED: potassium Cl 40MEQ/NS 500ml 500 ML IV PRN ×2 (13:45)
[2017-11-12] MEDS ORDERED: albuterol 2.5 MG/3 ML nebule NEB SCH (14:00)
[2017-11-12] MEDS ORDERED: ipratropium 0.5 MG/2.5ML nebule IH SCH (14:10)
[2017-11-12] MEDS: normal saline 1000ml 1,000 ML IV SCH (14:16)
[2017-11-12] MEDS: ipratropium/albuterol 3ml nebule NEB SCH ×2 (16:19→20:32)
[2017-11-12 19:00] VITALS: BP 170/86
[2017-11-12] MEDS: metoprolol tartrate 12.5mg (1/2 tablet) PO SCH (19:23)
[2017-11-12] MEDS: docusate sod 100mg capsule PO SCH (19:23)
[2017-11-12] MEDS: heparin, porcine 5000 units/ml vial SQ SCH (19:25)
[2017-11-12] MEDS ORDERED: temazepam 15mg capsule PO PRN (21:00)
[2017-11-12 23:00] VITALS: BP 130/74
[2017-11-13] MEDS: ipratropium/albuterol 3ml nebule NEB SCH ×2 (02:26→08:14)
[2017-11-13 03:00] VITALS: BP 128/86
[2017-11-13] MEDS: normal saline 1000ml 1,000 ML IV SCH (03:38)
[2017-11-13 06:09] LABS: BASOPHILS # (AUTO) 0.1 X10'3 (0-0.2); BASOPHILS % (AUTO) 0.7 % (0-1); EOSINOPHILS # (AUTO) 0.5 X10'3 (0-0.9); EOSINOPHILS % (AUTO) 5.6 % (0-6); HEMATOCRIT 37.3 % (42.0-52.0); HEMOGLOBIN 12.7 g/dl (14.0-17.9); LYMPHOCYTES # (AUTO) 1.8 X10'3 (1.1-4.8); LYMPHOCYTES % (AUTO) 19.3 % (21-51); MEAN CORPUSCULAR HEMOGLOBIN 30.1 PG (27.0-31.0); MEAN CORPUSCULAR VOLUME 88.7 FL (78-98); MEAN PLATELET VOLUME 8.1 FL (7.4-10.4); MONOCYTES # (AUTO) 0.8 X10'3 (0-0.9); MONOCYTES % (AUTO) 8.2 % (2-12); NEUTROPHILS # (AUTO) 6.3 X10'3 (1.8-7.7); NEUTROPHILS % (AUTO) 66.2 % (42-75); PLATELET COUNT 258 X10'3 (140-440); RED CELL DISTRIBUTION WIDTH 14.2 % (11.5-14.5); WHITE BLOOD COUNT 9.6 X10'3 (4.5-11.0)
[2017-11-13 06:56] LABS: ALANINE AMINOTRANSFERASE 24 U/L (12-78); ALBUMIN 3.1 G/DL (3.4-5.0); ALBUMIN/GLOBULIN RATIO 0.9 (1.1-1.5); ALKALINE PHOSPHATASE 56 IU/L (46-116); ANION GAP 8 (8-16); ASPARTATE AMINO TRANSFERASE 21 U/L (10-37); BILIRUBIN,TOTAL 0.3 MG/DL (0.1-1.0); BLOOD UREA NITROGEN 14 MG/DL (7-18); BUN/CREATININE RATIO 13.3 (5.4-32.0); CALCIUM 8.9 MG/DL (8.5-10.1); CHLORIDE 107 MMOL/L (99-107); CHOL/HDL RATIO 3.3 (0.00-4.99); CHOLESTEROL 138 MG/DL (0-200); CREATININE 1.05 MG/DL (0.60-1.10); GLUCOSE 106 MG/DL (70-104); HDL CHOLESTEROL 42 MG/DL (35-60); LDL CHOLESTEROL 71 MG/DL (50-100); POTASSIUM 4.3 MMOL/L (3.5-5.1); SODIUM 143 MMOL/L (135-145); TOTAL CARBON DIOXIDE 27.8 MMOL/L (24-32); TOTAL PROTEIN 6.5 G/DL (6.4-8.2); TRIGLYCERIDES 116 MG/DL (20-135); eGFR 73 ML/MIN
[2017-11-13 07:00] VITALS: BP 153/99
[2017-11-13] MEDS ORDERED: pantoprazole 40mg Tablet.DR PO SCH (08:00)
[2017-11-13] MEDS ORDERED: K and/or MAG REPLACEMENT MC SCH (08:00)
[2017-11-13] MEDS ORDERED: atorvastatin 10mg tablet PO SCH (08:00)
[2017-11-13] MEDS: heparin, porcine 5000 units/ml vial SQ SCH (08:18)
[2017-11-13] MEDS: metoprolol tartrate 12.5mg (1/2 tablet) PO SCH (08:18)
[2017-11-13] MEDS: docusate sod 100mg capsule PO SCH (08:18)
[2017-11-13] MEDS ORDERED: AZIT500T2 PO (08:57)
[2017-11-13] MEDS ORDERED: ASPI81TA52 PO (08:57)
[2017-11-13] MEDS ORDERED: ROBDML PO (08:58)
== END 2017-11-13 12:30 | disposition home or self-care (01) | DRG 202 ==
LOC: EDSEX 10:25 → EDBD 10:25 → ER 10:27 → ED HOLD 12:24 → PCU 3S 18:45
PROVIDERS: ADMIT Internal Medicine; ATTEND Internal Medicine
PROC: B4201ZZ Computerized Tomography (CT Scan) of Abdominal Aorta using Low Osmolar Contrast (ICD-10-PCS; principal; 2017-11-12)
PROC: B3201ZZ Computerized Tomography (CT Scan) of Thoracic Aorta using Low Osmolar Contrast (ICD-10-PCS; 2017-11-12)
DX: J20.9 Acute bronchitis, unspecified (principal); J44.0 Chronic obstructive pulmonary disease with (acute) lower respiratory infection; E27.8 Other specified disorders of adrenal gland; I27.20 Pulmonary hypertension, unspecified; I25.10 Atherosclerotic heart disease of native coronary artery without angina pectoris; I10 Essential (primary) hypertension; Q63.1 Lobulated, fused and horseshoe kidney; Z72.0 Tobacco use; Z95.2 Presence of prosthetic heart valve; Z79.899 Other long term (current) drug therapy; Z71.6 Tobacco abuse counseling
CPT/HCPCS: 36415; 71275; 74174; 80053; 80061; 83735; 83880; 84484; 85025; 87070; 93005; 93306; 94640; 94760; 96374; 96375; 96376; 99285; J1644; J2270; J2405; J7030; Q9967

== ENCOUNTER 2018-03-05 13:52 | Emergency (ER) | payer OTHER ==
[~2018-03-05] VITALS: Ht 177.8 cm; Wt 88.0 kg
[~2018-03-05 13:52] MED LIST changes: -ASPI-41 PO; -FLUO15OI2 TP; +OMEP40CA37 PO; +ROBDML PO
[2018-03-05] MEDS ORDERED: normal saline 1000ML IV soln IVB ONE (14:05)
[2018-03-05 14:17] LABS: BASOPHILS % (AUTO) 0.4 % (0-1); EOSINOPHILS # (AUTO) 0.2 X10'3 (0-0.9); EOSINOPHILS % (AUTO) 1.5 % (0-6); HEMATOCRIT 41.8 % (42.0-52.0); HEMOGLOBIN 14.1 g/dl (14.0-17.9); LYMPHOCYTES # (AUTO) 2.3 X10'3 (1.1-4.8); LYMPHOCYTES % (AUTO) 20.6 % (21-51); MEAN CORPUSCULAR HEMOGLOBIN 30.5 PG (27.0-31.0); MEAN CORPUSCULAR HGB CONC 33.8 % (33.0-36.5); MEAN CORPUSCULAR VOLUME 90.2 FL (78-98); MEAN PLATELET VOLUME 8.5 FL (7.4-10.4); MONOCYTES # (AUTO) 1.4 X10'3 (0-0.9); MONOCYTES % (AUTO) 12.9 % (2-12); NEUTROPHILS # (AUTO) 7.2 X10'3 (1.8-7.7); NEUTROPHILS % (AUTO) 64.6 % (42-75); PLATELET COUNT 208 X10'3 (140-440); RED BLOOD COUNT 4.64 X10'6 (4.70-6.10); WHITE BLOOD COUNT 11.1 X10'3 (4.5-11.0)
[2018-03-05 14:23] LABS: INR 1.2 INR; PARTIAL THROMBOPLASTIN TIME 26 SECONDS (22-32); PROTHROMBIN TIME 12.7 SECONDS (9.0-12.0)
[2018-03-05 14:27] LABS: ALANINE AMINOTRANSFERASE 23 U/L (12-78); ALBUMIN 3.5 G/DL (3.4-5.0); ALKALINE PHOSPHATASE 58 IU/L (46-116); ANION GAP 4 (8-16); ASPARTATE AMINO TRANSFERASE 18 U/L (10-37); BILIRUBIN,TOTAL 0.8 MG/DL (0.1-1.0); BLOOD UREA NITROGEN 19 MG/DL (7-18); BUN/CREATININE RATIO 20.2 (5.4-32.0); CALCIUM 8.6 MG/DL (8.5-10.1); CHLORIDE 104 MMOL/L (99-107); CREATININE 0.94 MG/DL (0.60-1.10); GLUCOSE 118 MG/DL (70-104); POTASSIUM 3.9 MMOL/L (3.5-5.1); SODIUM 134 MMOL/L (135-145); TOTAL CARBON DIOXIDE 25.7 MMOL/L (24-32); eGFR 83 ML/MIN
[2018-03-05] MEDS ORDERED: iohexol 350MG/ML 100ml bottle IV ONE (14:40)
[2018-03-05 15:32] VITALS: BP 123/69
[2018-03-05] MEDS ORDERED: VARE1TAB21 PO (15:36)
[2018-03-05] MEDS ORDERED: HYDR-565 PO (15:50)
== END 2018-03-05 16:12 | disposition home or self-care (01) ==
LOC: ER 13:53
DX: R07.81 Pleurodynia (principal); I25.10 Atherosclerotic heart disease of native coronary artery without angina pectoris; Z79.899 Other long term (current) drug therapy
CPT/HCPCS: 36415; 71045; 71275; 80053; 83880; 85025; 85610; 85730; 93005; 99285; J7030; Q9967

== ENCOUNTER 2021-06-22 04:36 | Emergency (ER) | payer OTHER ==
[~2021-06-22] VITALS: Ht 177.8 cm; Wt 91.4 kg
[~2021-06-22 04:36] MED LIST changes: -ALBU6.7H INH; +ALBU6.7H9 INH; -COL100C PO; +LOP25T PO; -METO25TA6 PO; +OMEP40CA21 PO; -OMEP40CA37 PO; -ROBDML PO; -TIOT18CA3 INH; +VARE1TAB21 PO
[2021-06-22 08:03] LABS: BASOPHILS # (AUTO) 0.1 X10'3 (0-0.2); BASOPHILS % (AUTO) 0.9 % (0-1); EOSINOPHILS # (AUTO) 0.4 X10'3 (0-0.9); EOSINOPHILS % (AUTO) 5.2 % (0-6); HEMOGLOBIN 14.2 g/dl (14.0-17.9); LYMPHOCYTES # (AUTO) 1.9 X10'3 (1.1-4.8); MEAN CORPUSCULAR HEMOGLOBIN 32.1 PG (27.0-31.0); MEAN CORPUSCULAR HGB CONC 33.9 g/dL (33.0-36.5); MEAN CORPUSCULAR VOLUME 94.5 FL (78-98); MEAN PLATELET VOLUME 8.3 FL (7.4-10.4); MONOCYTES # (AUTO) 0.8 X10'3 (0-0.9); MONOCYTES % (AUTO) 9.2 % (2-12); NEUTROPHILS # (AUTO) 5.1 X10'3 (1.8-7.7); NEUTROPHILS % (AUTO) 61.7 % (42-75); PLATELET COUNT 220 X10'3 (140-440); RED BLOOD COUNT 4.44 X10'6 (4.70-6.10); RED CELL DISTRIBUTION WIDTH 14.2 % (11.5-14.5); WHITE BLOOD COUNT 8.2 X10'3 (4.5-11.0)
[2021-06-22 08:29] LABS: CLARITY,URINE SLIGHTLY CLOUDY (Clear); COLOR,URINE YELLOW (Yellow); GLUCOSE, URINE NEGATIVE (Neg); KETONES,URINE NEGATIVE (Neg); LEUKOCYTE ESTERASE ,URINE NEGATIVE (Neg); NITRITES, URINE NEGATIVE (Neg); OCCULT BLOOD,URINE LARGE (Neg); PH,URINE 5.5 (4.8-8.0); PROTEIN,URINE 100 mg/dl (Neg); UROBILINOGEN,URINE 0.2 E.U/dL (0.2-1.0)
[2021-06-22 08:33] LABS: UA COLLECTION TYPE FOLEY CATH
[2021-06-22 08:34] LABS: ALANINE AMINOTRANSFERASE 13 U/L (12-78); ALBUMIN 3.5 G/DL (3.4-5.0); ALKALINE PHOSPHATASE 64 IU/L (46-116); ANION GAP 6 (8-16); ASPARTATE AMINO TRANSFERASE 14 U/L (10-37); BILIRUBIN,TOTAL 0.3 MG/DL (0.1-1.0); BLOOD UREA NITROGEN 16 MG/DL (7-18); BUN/CREATININE RATIO 18.2 (5.4-32.0); CALCIUM 8.6 MG/DL (8.5-10.1); CHLORIDE 110 MMOL/L (99-107); CREATININE 0.88 MG/DL (0.60-1.10); GLUCOSE 114 MG/DL (70-104); POTASSIUM 4.1 MMOL/L (3.5-5.1); SODIUM 140 MMOL/L (135-145); TOTAL CARBON DIOXIDE 24.5 MMOL/L (24-32); TOTAL PROTEIN 7.1 G/DL (6.4-8.2); eGFR 88 ML/MIN
[2021-06-22 08:35] LABS: BACTERIA,URINE FEW /HPF (Neg); MUCUS STRANDS FEW /LPF (Neg); RBC,URINE 20-50 /HPF (0-2); SQUAMOUS EPITHELIAL CELL,UR FEW /LPF (FEW)
--- NOTE | 2021-06-22 08:42 | NUR ---
primary RN made aware that patient needs to be irrigated.
--- NOTE | 2021-06-22 09:47 | NUR ---
Otm irrigated with 1,000ml of sterile water; 1,00ml came out clear yellow
[2021-06-22 10:02] VITALS: BP 124/28
== END 2021-06-22 11:46 | disposition home or self-care (01) ==
LOC: ER 04:36
DX: T83.031A Leakage of indwelling urethral catheter, initial encounter (principal); G89.29 Other chronic pain; I25.10 Atherosclerotic heart disease of native coronary artery without angina pectoris; E78.00 Pure hypercholesterolemia, unspecified; I10 Essential (primary) hypertension; F17.200 Nicotine dependence, unspecified, uncomplicated; Z98.890 Other specified postprocedural states; Z79.899 Other long term (current) drug therapy; Y84.6 Urinary catheterization as the cause of abnormal reaction of the patient, or of later complication, without mention of misadventure at the time of the procedure
CPT/HCPCS: 36415; 51700; 80053; 81001; 85025; 87088; 99284

== ENCOUNTER 2023-12-18 06:05 | Day surgery (SDC) | payer OTHER ==
[2023-12-11 14:41] LABS: BASOPHILS # (AUTO) 0.1 X10'3 (0-0.2); BASOPHILS % (AUTO) 0.9 % (0-1); EOSINOPHILS # (AUTO) 0.1 X10'3 (0-0.9); EOSINOPHILS % (AUTO) 1.7 % (0-6); HEMATOCRIT 42.9 % (42.0-52.0); HEMOGLOBIN 14.6 g/dl (14.0-17.9); LYMPHOCYTES # (AUTO) 2.6 X10'3 (1.1-4.8); MEAN CORPUSCULAR HEMOGLOBIN 31.7 PG (27.0-31.0); MEAN CORPUSCULAR VOLUME 93.2 FL (78-98); MEAN PLATELET VOLUME 8.9 FL (7.4-10.4); MONOCYTES # (AUTO) 0.8 X10'3 (0-0.9); MONOCYTES % (AUTO) 9.8 % (2-12); NEUTROPHILS # (AUTO) 4.8 X10'3 (1.8-7.7); NEUTROPHILS % (AUTO) 56.6 % (42-75); PLATELET COUNT 216 X10'3 (140-440); RED CELL DISTRIBUTION WIDTH 13.6 % (11.5-14.5); WHITE BLOOD COUNT 8.4 X10'3 (4.5-11.0)
[2023-12-11 14:44] LABS: BILIRUBIN,URINE NEGATIVE (Neg); CLARITY,URINE CLEAR (Clear); COLOR,URINE YELLOW (Yellow); GLUCOSE, URINE NEGATIVE (Neg); KETONES,URINE NEGATIVE (Neg); LEUKOCYTE ESTERASE ,URINE NEGATIVE (Neg); NITRITES, URINE NEGATIVE (Neg); OCCULT BLOOD,URINE NEGATIVE (Neg); PROTEIN,URINE NEGATIVE (Neg); UROBILINOGEN,URINE 0.2 E.U/dL (0.2-1.0)
[2023-12-11 14:53] LABS: UA COLLECTION TYPE NON-SPECIFIED
[2023-12-11 14:58] LABS: ALANINE AMINOTRANSFERASE 31 U/L (12-78); ALBUMIN/GLOBULIN RATIO 1.2 (1.1-1.5); ALKALINE PHOSPHATASE 67 IU/L (46-116); ANION GAP 10 (8-16); ASPARTATE AMINO TRANSFERASE 21 U/L (10-37); BILIRUBIN,TOTAL 0.5 MG/DL (0.1-1.0); BLOOD UREA NITROGEN 15 MG/DL (7-18); BUN/CREATININE RATIO 14.9 (10.0-20.0); CHLORIDE 105 MMOL/L (99-107); CREATININE 1.01 MG/DL (0.60-1.10); GLUCOSE 96 MG/DL (70-104); SODIUM 139 MMOL/L (135-145); TOTAL CARBON DIOXIDE 24.5 MMOL/L (24-32); TOTAL PROTEIN 7.4 G/DL (6.4-8.2); eGFR 75 ML/MIN
[2023-12-18] VITALS (20 sets, daily range): BP systolic 99–131; BP diastolic 58–80; PULSE 42–62; RESP 12–18; TEMP 97.4; O2SAT 95–99
[~2023-12-18] VITALS: Ht 177.8 cm; Wt 103.8 kg
[2023-12-18] MEDS: DOCUMENT DATE & TIME OF BETA-BLOCKER PO ONE (05:00)
[2023-12-18] MEDS: cefazolin 2gm/D5W 100mL 100 ML IV ONE (05:30)
[~2023-12-18 06:05] MED LIST changes: +ALBU6.7H14 INH; -ALBU6.7H9 INH; +AMLO2.5T2 PO; +ASPI-529 PO; -ATOR10TA PO; +ATOR20TA PO; +DICL100G59 TOP; +GABA-530 PO; -HYDR-3972 PO; +LOP12.5T PO; -LOP25T PO; -OMEP40CA21 PO; +SERT25TA PO; +TIOT18CA3 INH; -VARE1TAB21 PO; +albuterol 2.5 MG/3 ML nebule NEB ONE; +albuterol 2.5 MG/3 ML nebule NEB SCH
[2023-12-18] MEDS ORDERED: fentaNYL/PF 50MCG/1 ML 2ML syringe IV PRN ×2 (06:40)
[2023-12-18] MEDS ORDERED: morphine 4 MG/ML inj SYRINge IV PRN (06:40)
[2023-12-18] MEDS ORDERED: labetalol 20mg/4ml (5mg/ml) syringe IV PRN (06:40)
[2023-12-18] MEDS ORDERED: ondansetron/PF 4mg/2ml inj IV PRN (06:40)
[2023-12-18] MEDS ORDERED: ringers solution, lacted 1,000 ML IV SCH (06:40)
[2023-12-18] MEDS ORDERED: hydrALAZINE 20mg/ml inj. IV PRN (06:40)
[2023-12-18] MEDS ORDERED: morphine 2 MG/ML inj. syringe IV PRN (06:40)
[2023-12-18] MEDS: ringers solution, lacted 1,000 ML IV SCH (06:43)
[2023-12-18] MEDS: famotidine 20mg tablet PO ONE (06:43)
[2023-12-18] MEDS ORDERED: bacitracin 15gm ointment TP ONE (07:09)
[2023-12-18] MEDS ORDERED: sevoflurane 250ml liquid IH ONE (07:41)
[2023-12-18] MEDS ORDERED: propofol inj 20 ML IV ONE (07:44)
[2023-12-18] MEDS ORDERED: fentaNYL/PF 50MCG/1 ML 2ML syringe ONE (07:44)
[2023-12-18] MEDS ORDERED: LIDOcaine 2% (20mg/ml) 5ml vial ONE (07:44)
[2023-12-18] MEDS ORDERED: midazolam 1 mg/ML 2ml injection ONE (07:44)
[2023-12-18] MEDS ORDERED: acetaminophen 1,000mg/100ml IV 100 ML IV ONE (08:04)
[2023-12-18] MEDS: BUPIVAcaine/PF 2.5mg/ml (0.25%) 10ml vial IJ ONE (08:45)
[2023-12-18] MEDS: HYDROcodone/acetaminophen 10/325mg tab PO ONE (10:55)
== END 2023-12-18 11:36 | disposition home or self-care (01) ==
LOC: PAS 06:05
PROVIDERS: ATTEND Podiatrist Foot & Ankle Surgery
DX: M24.575 Contracture, left foot (principal); M77.42 Metatarsalgia, left foot; M25.375 Other instability, left foot; Z79.899 Other long term (current) drug therapy; Z79.01 Long term (current) use of anticoagulants; J44.9 Chronic obstructive pulmonary disease, unspecified; G47.30 Sleep apnea, unspecified; Z98.890 Other specified postprocedural states; Z95.2 Presence of prosthetic heart valve
CPT/HCPCS: 28270; 36415; 73620; 80053; 81003; 82948; 85025; A6223; J0131; J0690; J1100; J2250; J2405; J2704; J3010; J3490; J7030; J7120; Z7506; Z7512; 76000; A4618; A6449; A7000